=== PATIENT | male | born 1985 ===

== ENCOUNTER 2018-07-11 11:26 | Emergency (ER) | payer MEDICAID, OTHER ==
[2018-07-11 11:30] VITALS: BMI 24.4
[2018-07-11 11:33] VITALS: BP 129/86; PULSE 92; RESP 18; TEMP 98.7; O2SAT 99
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
== END 2018-07-11 14:23 | disposition home or self-care (01) ==
LOC: C.ER 11:26
DX: S69.91XA Unspecified injury of right wrist, hand and finger(s), initial encounter (principal); Y04.0XXA Assault by unarmed brawl or fight, initial encounter
CPT/HCPCS: 73110; 73130; 96372; 99284; J1885